=== PATIENT | male | born 1950 | race Two or more races ===

== ENCOUNTER 2023-09-20 08:12 | Emergency (ER) | payer MEDICARE, MEDICAID ==
[~2023-09-20] VITALS: Ht 185.4 cm; Wt 100.0 kg
[~2023-09-20 08:12] MED LIST: KEPP500 MT
[2023-09-20 08:19] VITALS: BP 78/49; PULSE 61; RESP 18; TEMP 98.7; O2SAT 97
[2023-09-20] MEDS ORDERED: SODIUM CHLORIDE 0.9% 1,000 ML IV ONE (09:00)
[2023-09-20 12:26] LABS: BASOPHILS % 0.4 % (0.0-2.0); EOSINOPHILS % 7.9 % (0.0-5.0); HEMATOCRIT. 46.2 % (42.0-52.0); HEMOGLOBIN. 15.3 g/dL (14.0-18.0); LYMPHOCYTES % 22.3 % (20.0-50.0); MEAN CORPUSCULAR HEMOGLOBIN 27.1 pg (28.0-32.0); MEAN CORPUSCULAR HGB CONC 33.1 g/dL (31.0-37.0); MEAN CORPUSCULAR VOLUME 81.9 fL (80.0-94.0); MEAN PLATELET VOLUME 8.8 fl (7.4-10.4); MONOCYTES % 5.9 % (2.0-8.0); NEUTROPHILS % 63.5 % (40.0-76.0); PLATELET 165 x1000/uL (130-400); RED BLOOD CELL COUNT 5.64 mill/uL (4.7-6.1); RED CELL DISTRIBUTION WIDTH 14.9 % (11.6-14.6)
[2023-09-20 12:55] LABS: ALANINE AMINOTRANSFERASE 18 IU/L (10-49); ASPARTATE AMINOTRANSFERASE 19 IU/L (<34); BILIRUBIN TOTAL 0.8 mg/dL (0.1-1.0); CALCIUM 9.5 mg/dL (8.7-10.4); CARBON DIOXIDE 29 mEq/L (21-32); CHLORIDE 105 mEq/L (98-107); GLUCOSE 95 mg/dL (70-105); POTASSIUM 4.1 mEq/L (3.5-5.1); PROTEIN TOTAL 7.3 g/dL (6.0-8.3); SODIUM 141 mEq/L (136-145); UREA NITROGEN BLOOD 9 mg/dL (9-23)
[2023-09-20 13:02] LABS: ETHANOL BLOOD < 10 mg/dL (<10)
[2023-09-20 13:03] LABS: VALPROIC ACID < 3.0 ug/mL (50-100)
[2023-09-20] MEDS ORDERED: LEVETIRACETAM 500MG PREMIX 100 ML IV ONE (13:15)
[2023-09-20] MEDS ORDERED: KEPP500 MT (13:21)
== END 2023-09-20 16:10 | disposition home or self-care (01) ==
LOC: ER 08:12
DX: R56.9 Unspecified convulsions (principal)
CPT/HCPCS: 80053; 80320; 80165; 85025; 36415; 70450; 96361; 96365; 99284; J1953; J7030; G0480

== ENCOUNTER 2024-01-03 11:24 | Inpatient (IN) | payer MEDICARE, MEDICAID ==
[~2024-01-03] VITALS: Ht 175.3 cm; Wt 84.8 kg
[~2024-01-03 11:24] MED LIST changes: -KEPP500 MT; +LEVE750T4 MT; +THIA100T72 MT
[2024-01-03 13:54] LABS: BASOPHILS % 0.6 % (0.0-2.0); EOSINOPHILS % 7.8 % (0.0-5.0); HEMATOCRIT. 49.1 % (42.0-52.0); HEMOGLOBIN. 15.4 g/dL (14.0-18.0); LYMPHOCYTES % 35.1 % (20.0-50.0); MEAN CORPUSCULAR HEMOGLOBIN 26.8 pg (28.0-32.0); MEAN CORPUSCULAR HGB CONC 31.3 g/dL (31.0-37.0); MEAN CORPUSCULAR VOLUME 85.6 fL (80.0-94.0); MEAN PLATELET VOLUME 9.2 fl (7.4-10.4); MONOCYTES % 8.7 % (2.0-8.0); NEUTROPHILS % 47.8 % (40.0-76.0); PLATELET 141 x1000/uL (130-400); RED BLOOD CELL COUNT 5.73 mill/uL (4.7-6.1); RED CELL DISTRIBUTION WIDTH 15.6 % (11.6-14.6); WHITE BLOOD COUNT 6.1 x1000/uL (4.5-11.0)
[2024-01-03] MEDS: SODIUM CHLORIDE 0.9% 1,000 ML IV ONE (14:05)
[2024-01-03 14:32] LABS: ALANINE AMINOTRANSFERASE 27 IU/L (10-49); ALBUMIN 4.3 g/dL (3.2-4.8); ASPARTATE AMINOTRANSFERASE 36 IU/L (<34); BILIRUBIN TOTAL 0.3 mg/dL (0.1-1.0); CALCIUM 8.8 mg/dL (8.7-10.4); CARBON DIOXIDE 22 mEq/L (21-32); CHLORIDE 108 mEq/L (98-107); CREATININE 0.9 mg/dL (0.6-1.3); GLUCOSE 83 mg/dL (70-105); POTASSIUM 5.2 mEq/L (3.5-5.1); PROTEIN TOTAL 7.5 g/dL (6.0-8.3); SODIUM 139 mEq/L (136-145); TROPONIN I HIGH SENSITIVITY 17 ng/L (3.0-53); UREA NITROGEN BLOOD 19 mg/dL (9-23)
[2024-01-03 14:35] LABS: ETHANOL BLOOD < 10 mg/dL (<10)
[2024-01-03] MEDS: CALCIUM GLUCONATE 1GM PREMIX 100 ML IV SCH (15:22)
[2024-01-03] MEDS: FUROSEMIDE 40MG/4ML VIAL IV NR (15:29)
[2024-01-03 16:13] LABS: CALCIUM 8.6 mg/dL (8.7-10.4); CARBON DIOXIDE 25 mEq/L (21-32); CHLORIDE 108 mEq/L (98-107); CREATININE 0.8 mg/dL (0.6-1.3); GLUCOSE 92 mg/dL (70-105); SODIUM 138 mEq/L (136-145); UREA NITROGEN BLOOD 15 mg/dL (9-23)
[2024-01-03] MEDS: SODIUM BICARBONATE 8.4% 1 MEQ/ML 50ML SYR IV NR (16:18)
[2024-01-03] MEDS: ALBUTEROL (0.083%) 2.5MG/3ML NEB HHN SCH (17:07)
[2024-01-03 17:08] VITALS: PULSE 69; RESP 16; O2SAT 97
[2024-01-03 23:47] VITALS: BP 109/70; PULSE 66; RESP 16; TEMP 97.9
[2024-01-04] VITALS: BP 109/70; PULSE 66; RESP 16; TEMP 97.9
[2024-01-04] MEDS ORDERED: ENOXAPARIN 40MG/0.4ML SYR SUBCUT SCH
[2024-01-04] MEDS ORDERED: CLONIDINE 0.1MG TABLET PO PRN
[2024-01-04] MEDS ORDERED: THIAMINE HCL 100MG TABLET PO SCH
[2024-01-04] MEDS ORDERED: ONDANSETRON HCL 4MG/2ML INJ IV PRN
[2024-01-04] MEDS ORDERED: IPRATROPIUM/ALBUTEROL 0.5-3(2.5)MG/3ML NEB NEB PRN
[2024-01-04] MEDS ORDERED: ACETAMINOPHEN 325MG TABLET PO PRN
[2024-01-04] MEDS: SODIUM CHLORIDE 0.9% 1,000 ML IV SCH (00:56)
[2024-01-04 04:00] VITALS: BP 103/74; PULSE 74; RESP 16; TEMP 98.4
[2024-01-04 07:29] LABS: CREATINE KINASE MB FRACTION 4.3 ng/mL (0.5-3.6)
[2024-01-04 07:44] LABS: CALCIUM 8.8 mg/dL (8.7-10.4); CARBON DIOXIDE 26 mEq/L (21-32); CHLORIDE 106 mEq/L (98-107); CREATININE 0.9 mg/dL (0.6-1.3); GLUCOSE 101 mg/dL (70-105); POTASSIUM 3.8 mEq/L (3.5-5.1); SODIUM 139 mEq/L (136-145); UREA NITROGEN BLOOD 13 mg/dL (9-23)
[2024-01-04 07:57] LABS: BASOPHILS % 0.5 % (0.0-2.0); EOSINOPHILS % 7.5 % (0.0-5.0); HEMATOCRIT. 43.1 % (42.0-52.0); HEMOGLOBIN. 14.4 g/dL (14.0-18.0); LYMPHOCYTES % 34.2 % (20.0-50.0); MEAN CORPUSCULAR HEMOGLOBIN 27.3 pg (28.0-32.0); MEAN CORPUSCULAR HGB CONC 33.5 g/dL (31.0-37.0); MEAN CORPUSCULAR VOLUME 81.4 fL (80.0-94.0); MEAN PLATELET VOLUME 9.6 fl (7.4-10.4); MONOCYTES % 7.7 % (2.0-8.0); NEUTROPHILS % 50.1 % (40.0-76.0); PLATELET 168 x1000/uL (130-400); RED BLOOD CELL COUNT 5.29 mill/uL (4.7-6.1); RED CELL DISTRIBUTION WIDTH 15.2 % (11.6-14.6); WHITE BLOOD COUNT 6.2 x1000/uL (4.5-11.0)
[2024-01-04 08:00] VITALS: BP 114/71; PULSE 66; RESP 18; TEMP 96.6
[2024-01-04] MEDS: THIAMINE HCL 100MG TABLET PO SCH (08:44)
[2024-01-04] MEDS: ENOXAPARIN 40MG/0.4ML SYR SUBCUT SCH (08:45)
[2024-01-04] MEDS: LEVETIRACETAM 500MG/5ML CUP PO SCH (08:45)
[2024-01-04 12:00] VITALS: BP 103/67; PULSE 71; RESP 18; TEMP 97.6
[2024-01-04 13:33] VITALS: BP 103/67; PULSE 71; TEMP 97.3; O2SAT 95
[2024-01-04] MEDS ORDERED: INFLUENZA VACCINE 05/PF 0.5 ML SYRINGE IM ONE (21:00)
[2024-01-04] MEDS ORDERED: PNEUMOCOCCAL 23-VAL P-SAC VAC 0.5 ML IM ONE (21:00)
== END 2024-01-04 14:10 | disposition home or self-care (01) | DRG 918 ==
LOC: ER 11:24 → 8WST 11:25 → EDBEDREQ 17:31 → EDBEDREQTM 17:31 → ER 22:22
PROVIDERS: ADMIT Internal Medicine; ATTEND Internal Medicine
DX: T40.5X1A Poisoning by cocaine, accidental (unintentional), initial encounter (principal); R53.1 Weakness; R07.9 Chest pain, unspecified; E87.5 Hyperkalemia; I10 Essential (primary) hypertension; I25.2 Old myocardial infarction; F14.129 Cocaine abuse with intoxication, unspecified; F17.200 Nicotine dependence, unspecified, uncomplicated; X58.XXXA Exposure to other specified factors, initial encounter; R56.9 Unspecified convulsions; I25.10 Atherosclerotic heart disease of native coronary artery without angina pectoris
CPT/HCPCS: 36415; 71045; 80048; 80053; 80320; 82550; 82553; 83735; 83880; 84484; 85025; 90686; 90732; 93005; 94644; 99291; J0610; J1650; J1940; J3490; J7030; G0480

== ENCOUNTER 2024-01-29 14:06 | Emergency (ER) | payer MEDICARE, MEDICAID ==
[~2024-01-29] VITALS: Ht 182.9 cm; Wt 90.0 kg
[2024-01-29 14:08] VITALS: O2SAT 100
[2024-01-29] MEDS: LEVETIRACETAM 1000MG PREMIX 100 ML IV ONE (15:07)
[2024-01-29 16:00] LABS: BASOPHILS % 0.5 % (0.0-2.0); EOSINOPHILS % 5.5 % (0.0-5.0); HEMATOCRIT. 40.9 % (42.0-52.0); HEMOGLOBIN. 13.6 g/dL (14.0-18.0); LYMPHOCYTES % 16.6 % (20.0-50.0); MEAN CORPUSCULAR HEMOGLOBIN 27.5 pg (28.0-32.0); MEAN CORPUSCULAR HGB CONC 33.2 g/dL (31.0-37.0); MEAN CORPUSCULAR VOLUME 83.1 fL (80.0-94.0); MEAN PLATELET VOLUME 9.1 fl (7.4-10.4); MONOCYTES % 7.5 % (2.0-8.0); NEUTROPHILS % 69.9 % (40.0-76.0); PLATELET 153 x1000/uL (130-400); RED BLOOD CELL COUNT 4.93 mill/uL (4.7-6.1); WHITE BLOOD COUNT 6.7 x1000/uL (4.5-11.0)
[2024-01-29 16:21] LABS: ALANINE AMINOTRANSFERASE 15 IU/L (10-49); ALBUMIN 4.2 g/dL (3.2-4.8); ASPARTATE AMINOTRANSFERASE 26 IU/L (<34); BILIRUBIN TOTAL 0.6 mg/dL (0.1-1.0); CALCIUM 8.6 mg/dL (8.7-10.4); CARBON DIOXIDE 28 mEq/L (21-32); CHLORIDE 103 mEq/L (98-107); CREATININE 1.1 mg/dL (0.6-1.3); GLUCOSE 94 mg/dL (70-105); POTASSIUM 3.8 mEq/L (3.5-5.1); PROTEIN TOTAL 7.4 g/dL (6.0-8.3); SODIUM 135 mEq/L (136-145); UREA NITROGEN BLOOD 11 mg/dL (9-23)
[2024-01-29] MEDS ORDERED: LEVE1000 MT (20:48)
[2024-01-29 21:34] VITALS: BP 130/80; PULSE 85; RESP 16; TEMP 98.5
== END 2024-01-29 21:55 | disposition home or self-care (01) ==
LOC: ER 14:06
DX: G40.901 Epilepsy, unspecified, not intractable, with status epilepticus (principal); Z98.890 Other specified postprocedural states
CPT/HCPCS: 99284; 96365; 70450; 80053; 85025; 36415; J1953

== ENCOUNTER 2024-06-19 14:17 | Inpatient (IN) | payer MEDICARE, OTHER ==
[~2024-06-19] VITALS: Ht 182.9 cm; Wt 80.0 kg
[~2024-06-19 14:17] MED LIST changes: +LEVE1000 MT
[2024-06-19] MEDS: LEVETIRACETAM 1000MG PREMIX 100 ML IV ONE (15:12)
[2024-06-19 15:20] LABS: BASOPHILS % 0.3 % (0.0-2.0); EOSINOPHILS % 7.5 % (0.0-5.0); HEMATOCRIT. 44.7 % (42.0-52.0); HEMOGLOBIN. 14.6 g/dL (14.0-18.0); LYMPHOCYTES % 24.7 % (20.0-50.0); MEAN CORPUSCULAR HEMOGLOBIN 26.6 pg (28.0-32.0); MEAN CORPUSCULAR HGB CONC 32.6 g/dL (31.0-37.0); MEAN CORPUSCULAR VOLUME 81.5 fL (80.0-94.0); MEAN PLATELET VOLUME 8.8 fl (7.4-10.4); MONOCYTES % 5.6 % (2.0-8.0); NEUTROPHILS % 61.9 % (40.0-76.0); PLATELET 165 x1000/uL (130-400); RED BLOOD CELL COUNT 5.49 mill/uL (4.7-6.1); RED CELL DISTRIBUTION WIDTH 15.6 % (11.6-14.6); WHITE BLOOD COUNT 4.7 x1000/uL (4.5-11.0)
[2024-06-19 15:23] LABS: CHLORIDE 108 mEq/L (98-107); POTASSIUM 4.1 mEq/L (3.5-5.1); SODIUM 138 mEq/L (136-145)
[2024-06-19 15:24] LABS: CALCIUM 9.5 mg/dL (8.7-10.4); CARBON DIOXIDE 28 mEq/L (21-32)
[2024-06-19 15:29] LABS: CREATININE 0.9 mg/dL (0.6-1.3); GLUCOSE 107 mg/dL (70-105); UREA NITROGEN BLOOD 12 mg/dL (9-23)
[2024-06-19 15:36] LABS: ETHANOL BLOOD < 10 mg/dL (<10)
[2024-06-19] MEDS ORDERED: CLONIDINE 0.1MG TABLET PO PRN (21:15)
[2024-06-19] MEDS ORDERED: ONDANSETRON HCL 4MG/2ML INJ IV PRN (21:15)
[2024-06-19] MEDS ORDERED: LORAZEPAM 2MG/ML INJ IV PRN (21:15)
[2024-06-19] MEDS ORDERED: IPRATROPIUM/ALBUTEROL 0.5-3(2.5)MG/3ML NEB HHN PRN (21:15)
[2024-06-19] MEDS ORDERED: DIPHENHYDRAMINE 50MG/ML VIAL IV PRN (21:15)
[2024-06-19 23:00] VITALS: BP 130/107; PULSE 60; RESP 18; TEMP 36.5292
[2024-06-20 04:00] VITALS: BP 119/81; PULSE 60; RESP 18; TEMP 36.55848; O2SAT 99
[2024-06-20 06:58] LABS: CHLORIDE 110 mEq/L (98-107); SODIUM 141 mEq/L (136-145)
[2024-06-20 06:59] LABS: CARBON DIOXIDE 26 mEq/L (21-32)
[2024-06-20 07:00] LABS: CALCIUM 9.4 mg/dL (8.7-10.4)
[2024-06-20 07:04] LABS: CREATININE 0.8 mg/dL (0.6-1.3); GLUCOSE 94 mg/dL (70-105); UREA NITROGEN BLOOD 10 mg/dL (9-23)
[2024-06-20 07:27] LABS: BASOPHILS % 0.7 % (0.0-2.0); EOSINOPHILS % 7.5 % (0.0-5.0); HEMATOCRIT. 45.5 % (42.0-52.0); HEMOGLOBIN. 14.6 g/dL (14.0-18.0); LYMPHOCYTES % 35.4 % (20.0-50.0); MEAN CORPUSCULAR HEMOGLOBIN 26.5 pg (28.0-32.0); MEAN CORPUSCULAR HGB CONC 32.2 g/dL (31.0-37.0); MEAN CORPUSCULAR VOLUME 82.4 fL (80.0-94.0); MEAN PLATELET VOLUME 9.3 fl (7.4-10.4); MONOCYTES % 6.7 % (2.0-8.0); NEUTROPHILS % 49.7 % (40.0-76.0); PLATELET 161 x1000/uL (130-400); RED BLOOD CELL COUNT 5.52 mill/uL (4.7-6.1); RED CELL DISTRIBUTION WIDTH 15.8 % (11.6-14.6); WHITE BLOOD COUNT 4.7 x1000/uL (4.5-11.0)
[2024-06-20 08:00] VITALS: BP 110/69; PULSE 68; RESP 17; TEMP 36.3918; O2SAT 97
[2024-06-20] MEDS ORDERED: LEVETIRACETAM 500MG PREMIX 100 ML IV SCH (09:00)
[2024-06-20] MEDS: LEVETIRACETAM 500MG PREMIX 100 ML IV SCH (11:24)
[2024-06-20 12:00] VITALS: BP 115/65; PULSE 64; RESP 17; TEMP 36.3918; O2SAT 95
[2024-06-20 16:00] VITALS: BP 97/63; PULSE 73; RESP 17; TEMP 36.3918; O2SAT 95
[2024-06-21] VITALS: BP 113/63; PULSE 63; RESP 17; TEMP 36.50292; O2SAT 99
[2024-06-21 04:00] VITALS: BP 142/70; PULSE 102; RESP 18; TEMP 36.61404; O2SAT 99
[2024-06-21 08:00] VITALS: BP 102/65; PULSE 68; RESP 18; TEMP 36.72516; O2SAT 98
[2024-06-21] MEDS: LEVETIRACETAM 500MG TABLET PO SCH (08:10)
[2024-06-21 12:00] VITALS: BP 105/60; PULSE 64; RESP 20; TEMP 36.6696; O2SAT 99
[2024-06-21 12:24] LABS: *AMPHETAMINES SCREEN URINE NEGATIVE (NEGATIVE); *BARBITURATES SCREEN URINE NEGATIVE (NEGATIVE); *BENZODIAZEPINES SCREEN URINE NEGATIVE (NEGATIVE); *COCAINE SCREEN URINE NEGATIVE (NEGATIVE); METHADONE URINE SCREEN NEGATIVE (NEGATIVE)
[2024-06-21 12:25] LABS: CANNABINOID URINE SCREEN NEGATIVE (NEGATIVE); ECSTASY MDMA SCREEN URINE NEGATIVE (NEGATIVE); OPIATES URINE SCREEN NEGATIVE (NEGATIVE); PHENCYCLIDINE URINE SCREEN NEGATIVE (NEGATIVE)
[2024-06-21] MEDS ORDERED: KEPP500 PO (12:30)
[2024-06-21 16:00] VITALS: BP 100/74; PULSE 63; RESP 18; TEMP 36.61404; O2SAT 97
[2024-06-21 20:00] VITALS: BP 141/118; PULSE 68; RESP 18; TEMP 36.55848; O2SAT 99
[2024-06-22] VITALS: BP 138/72; PULSE 67; RESP 20; TEMP 37.11408; O2SAT 100
[2024-06-22 04:00] VITALS: BP 92/55; PULSE 70; RESP 18; TEMP 36.50292; O2SAT 98
[2024-06-22 08:00] VITALS: BP 106/69; PULSE 64; RESP 17; TEMP 36.50292
[2024-06-22 12:00] VITALS: BP 115/64; PULSE 72; RESP 18; TEMP 36.22512; O2SAT 99
[2024-06-22 20:00] VITALS: BP 105/66; PULSE 73; RESP 18; TEMP 35.66952; O2SAT 97
[2024-06-23] VITALS: BP 108/78; PULSE 77; RESP 18; TEMP 38.0586; O2SAT 100
[2024-06-23] MEDS: ACETAMINOPHEN 325MG TABLET PO PRN (01:10)
[2024-06-23 04:00] VITALS: BP 95/70; PULSE 79; RESP 18; TEMP 37.00296; O2SAT 100
[2024-06-23 08:00] VITALS: BP 115/53; PULSE 76; RESP 20; TEMP 36.28068; O2SAT 95
[2024-06-23 12:00] VITALS: BP 100/62; PULSE 75; RESP 18; TEMP 36.50292; O2SAT 93
[2024-06-23 16:00] VITALS: BP 104/56; PULSE 74; RESP 20; TEMP 36.6696; O2SAT 93
[2024-06-23 20:00] VITALS: BP 108/54; PULSE 74; RESP 20; TEMP 36.61404; O2SAT 96
[2024-06-24] VITALS: BP 104/73; PULSE 71; RESP 21; TEMP 36.114; O2SAT 96
[2024-06-24 04:00] VITALS: BP 108/69; PULSE 65; RESP 19; TEMP 36.22512; O2SAT 98
[2024-06-24 08:00] VITALS: BP 105/69; PULSE 68; RESP 18; TEMP 36.6696; O2SAT 95
[2024-06-24 12:00] VITALS: BP 105/60; PULSE 62; RESP 18; TEMP 36.114; O2SAT 95
[2024-06-24 16:00] VITALS: BP 117/69; PULSE 67; RESP 20; TEMP 36.44736; O2SAT 93
[2024-06-24 20:00] VITALS: BP 109/72; PULSE 70; RESP 18; TEMP 36.61404; O2SAT 94
[2024-06-25] VITALS: BP 113/61; PULSE 73; RESP 18; TEMP 36.6696; O2SAT 93
[2024-06-25 04:00] VITALS: BP 103/64; PULSE 61; RESP 18; TEMP 36.50292; O2SAT 91
[2024-06-25 08:00] VITALS: BP 120/71; PULSE 65; RESP 17; TEMP 35.89176; O2SAT 97
[2024-06-25 12:00] VITALS: BP 99/70; PULSE 65; RESP 17; TEMP 35.89176; O2SAT 99
[2024-06-25 14:02] VITALS: BP 99/70; PULSE 65; TEMP 96.6; O2SAT 99
== END 2024-06-25 14:14 | disposition home health service (06) | DRG 101 ==
LOC: ER 14:17 → 8WST 17:05 → EDBEDREQTM 17:23 → EDBEDREQ 17:23 → 8WST 06-24 00:27
PROVIDERS: ADMIT Internal Medicine; ATTEND Internal Medicine
DX: G40.409 Other generalized epilepsy and epileptic syndromes, not intractable, without status epilepticus (principal); I10 Essential (primary) hypertension; Z79.899 Other long term (current) drug therapy; I69.80 Unspecified sequelae of other cerebrovascular disease; G93.89 Other specified disorders of brain
CPT/HCPCS: 36415; 80048; 80305; 80320; 85025; 93970; 94640; 99285; J1953; G0480